=== PATIENT | female | born 1935 | race Caucasian/White ===

== ENCOUNTER → 2016-12-18 | Outpatient (CLI) | payer MEDICARE ==
[~2016-12-18] MED LIST: CALTRATE 600 +1 TAB PO; COLACE 100100 MG/CAP PO; LEVOTHYROXINE0.1 MG PO; LOTENSIN10 MG PO; MAGNESIUM OXIDE; NIFEREX-150 501 CA1 PO
== END ==
LOC: MC.RAD 14:55
DX: Z12.31 Encounter for screening mammogram for malignant neoplasm of breast (principal)

== ENCOUNTER → 2019-08-29 | Outpatient (CLI) | payer MEDICARE | LOC: MC.RAD 08-04 13:45 | DX: Z12.31 Encounter for screening mammogram for malignant neoplasm of breast (principal) ==